=== PATIENT | female | born 1960 | race Caucasian/White ===

== ENCOUNTER 2017-06-18 18:11 | Emergency (ER) | payer OTHER ==
[~2017-06-18] VITALS: Ht 157.5 cm; Wt 79.8 kg
[~2017-06-18 18:11] MED LIST: BENADRYL CREAM15 GM TOP; ENDOCET 325 MG-1 TA1 PO; HYDROCODONE/ACE1 TA1 PO; PERCOCET 325 MG1 TA2 PO; PRILOSEC40 MG PO; PROVIGIL200 MG PO; VENLAFAXINE HY150 M1 PO; VENLAFAXINE HYD75 M1 PO; VENLAFAXINE HYD75 MG PO
[2017-06-18] MEDS ORDERED: KETOROLAC TROME10 M1 PO (20:11)
--- NOTE | 2017-06-18 20:14 | ED UPPER/LOWER EXTREMITY COMPL ---
History of Present Illness General Chief Complaint: Lower Extremity Problems Stated Complaint: LEFT LEG PAIN Source: patient Exam Limitations: no limitations Vital Signs & Intake/Output Vital Signs & Intake/Output Vital Signs Date Time Temp Pulse Resp B/P B/P Pulse O2 O2 Flow FiO2 Mean Ox Delivery Rate 06/18 2019 98.4 98 18 160/89 98 Room Air 06/18 1832 97.8 116 15 156/90 96 Room Air Room Air Allergies Coded Allergies: MDX - Pregabalin (From LYRICA) (FACE RASH AND SWELLING 06/18/17) Reconcile Medications Diphenhydramine HCl (Benadryl Cream 15GM) 15 GM CRM 1 RUTH TOP Q8P PRN ITCHING Ketorolac Tromethamine 10 MG TABLET 1 TAB PO TID PRN PAIN RECEIVED IM IN ER Modafinil (Provigil) 200 MG TAB 200 MG PO DAILY DEPRESSION (Reported) Omeprazole (Prilosec) 40 MG ECC 1 CAP PO DAILY GI (Reported) OXYCODONE HCL/ACETAMINOPHEN (Percocet 5-325 MG Tablet) 325 MG/5 MG TAB 1 TAB PO Q6P PRN PAIN OXYCODONE HCL/ACETAMINOPHEN (Endocet 5-325 Tablet) 1 TAB TAB 1-2 TAB PO Q6H PRN PAIN VENLAFAXINE HCL (Venlafaxine Hydrochloride) 75 MG TABLET 1 TAB PO DAILY MENTAL HEALTH (Reported) TAKEN WITH 150MG TAB VENLAFAXINE HCL (Venlafaxine HCl ER) 150 MG TAB.ER.24 1 TAB PO DAILY MENTAL HEALTH (Reported) TAKEN WITH 75 MG TAB Triage Note: PT TO ED FOR C/C OF LEFT LEG PAIN S/P DOG HITTING PT. PT REPORTS GROIN AND THIGH PAIN IS THE WORST OF THE PAIN. PT AMBULATORY IN TRIAGE. 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 Triage Nurses Notes Reviewed? yes Onset: Abrupt Duration: constant Timing: recent history Severity: severe Severity Numbers: 7 No Modifying Factors: none HPI: Patient is a 57-year-old female who presents emergency room stating that on 4 days ago patient states that their dog was so excited to see him from returning home that the dog head hit patient to the left anterior aspect of her thigh and has been complaining of muscular pain to the thigh since. Patient states that ambulation and knee bend make worse. Patient has been taking Tylenol and previously prescribed tramadol with minimal relief of symptoms. Denies any hip or knee pain. (MACK DELUNA) Past History Travel History Traveled to [place] past 21 day No Medical History Any Pertinent Medical History? see below for history Neurological: NONE EENT: PLAQUE PSORIASIS PUSTULAR PSORIASIS ECZEMA Cardiovascular: NONE Respiratory: NONE Gastrointestinal: NONE Hepatic: NONE Renal: NONE Musculoskeletal: OSTEOPOROSIS RA Psychiatric: depression Endocrine: Mary Lou's thyroiditis Cancer(s): melanoma [employer] MACHINE OPERATOR/Reproductive: HYSTERECTOMY Other Medical Hx: psoriasis History of MRSA: No History of VRE: No History of CDIFF: No Surgical History Surgical History: non-contributory Psychosocial History Who do you live with Family Services at Home None What is your primary language Macedonian Tobacco Use: Current Daily Use Daily Tobacco Use Amount/Type: => 5 Cigarettes daily ETOH Use: denies use Illicit Drug Use: denies illicit drug use Family History Family History, If Any: MOTHER FATHER FH: HTN (hypertension) FH: rheumatoid arthritis BROTHER FH: celiac disease Hx Contributory? No (MACK DELUNA) Review of Systems Review of Systems Constitutional: Reports: no symptoms. EENTM: Reports: no symptoms. Respiratory: Reports: no symptoms. Cardiovascular: Reports: no symptoms. Gastrointestinal/Abdominal: Reports: no symptoms. Genitourinary: Reports: no symptoms. Musculoskeletal: Reports: see HPI, muscle pain. Skin: Reports: no symptoms. Neurological/Psychological: Reports: no symptoms. Hematologic/Endocrine: Reports: no symptoms. Immunological: Reports: no symptoms. All Other Systems: Reviewed and Negative (MACK DELUNA) Physical Exam Physical Exam General Appearance: no apparent distress, alert Neurologic/Tendon: normal sensation, normal motor functions, normal tendon functions, responds to pain, no evidence tendon injury, no pulse deficit Skin: intact, normal color, warm/dry Comments: Well-developed well-nourished no apparent distress. HEENT: Atraumatic, extraocular motion intact Neck: Supple, no lymphadenopathy Back: Nontender Respiratory: No respiratory distress Extremities: Left hip normal inspection and nontender full active range of motion patient able to perform straight leg raise Left knee normal inspection and nontender full active range of motion Neuro: Alert and oriented x3 Psych: Mood affect normal, normal memory normal judgment. Diagram Legs Front/Back 1) Noted point tenderness on palpation, normal inspection, no signs of trauma dermatomes intact (MACK DELUNA) Progress Differential Diagnosis: arterial insufficiency, compartment syndrome, contusion, dislocation, DVT, fracture, gout, septic arthritis, sprain, tendon injury Plan of Care: Current Medications Sig/Moises Start time Last Medication Dose Stop Time Status Admin Ketorolac 30 MG ONCE ONE 06/18 2015 UNVr Tromethamine 06/18 2016 (Toradol) Due to history of present illness and exam findings my suspicion of quadriceps contusion is high and there which there is no suspicion of fracture at this time. Patient had unremarkable left hip and left knee joint pain or pain upon palpation and no concerns of osseous injury. Recent had mild antalgic gait however it was noted to be steady (MACK DELUNA) Departure Departure Disposition: HOME OR SELF CARE Condition: Stable Clinical Impression Primary Impression: Quadriceps contusion Referrals: SUZIE LAGUNA,CASSIA Eisenberg (PCP/Family) Additional Instructions: As discussed begin icing the area directly 20 minutes every 2 hours. Begin the prescription for ketorolac for pain and inflammation continue home medications especially your previously prescribed tramadol. If no better in 5 days follow- up with primary care doctor. If symptoms worsen return to the emergency room. Activity as tolerated try to stretch out the leg to improve healing as discussed prescriptions waiting [facility] Departure Forms: Customer Survey General Discharge Information Prescriptions: Current Visit Scripts Ketorolac Tromethamine 1 TAB PO TID PRN PAIN #15 TAB RECEIVED IM IN ER (MACK DELUNA) PA/SUPPLY REQUIREMENTS OFFICER Co-Sign Statement Statement: ED Attending supervision documentation- [] I saw and evaluated the patient. I have also reviewed all the pertinent lab results and diagnostic results. I agree with the findings and the plan of care as documented in the PA's/SUPPLY REQUIREMENTS OFFICER's documentation. [X] I have reviewed the ED Record and agree with the PA's/SUPPLY REQUIREMENTS OFFICER's documentation. [] Additions or exceptions (if any) to the PAs/SUPPLY REQUIREMENTS OFFICER's note and plan are summarized below: [] (FARIDEH LAGUNA,TOMMY Kinsey)
[2017-06-18 20:19] VITALS: BP 160/89
== END 2017-06-18 20:27 ==
LOC: ERH 18:11
DX: S70.12XA Contusion of left thigh, initial encounter (principal); W22.8XXA Striking against or struck by other objects, initial encounter; Y92.9 Unspecified place or not applicable; Y93.9 Activity, unspecified
CPT/HCPCS: 96372; J1885